=== PATIENT | female | born 1935 | race Caucasian/White ===

== ENCOUNTER 2017-11-09 14:50 | Emergency (ER) | payer OTHER ==
[~2017-11-09] VITALS: Ht 170.2 cm; Wt 54.4 kg
[~2017-11-09 14:50] MED LIST: CARB-93 PO; CLON0.5T4 PO; PARO10TA86 PO; SIMV40TA5 PO
[2017-11-09] MEDS ORDERED: PARO25TA16 PO (15:07)
[2017-11-09 15:52] LABS: BASOPHILS % (AUTO) 0.4 % (0.0-2.0); EOSINOPHILS % (AUTO) 0.1 % (0.0-7.0); HEMATOCRIT 44.6 % (31.2-41.9); HEMOGLOBIN 15.1 g/dL (10.9-14.3); LYMPHOCYTES # (AUTO) 1.2 K/uL (20.0-40.0); LYMPHOCYTES % (AUTO) 15.3 % (20.5-51.5); MEAN CORPUSCULAR HEMOGLOBIN 32.2 uug (24.7-32.8); MEAN CORPUSCULAR HGB CONC 34 g/dL (32.3-35.6); MEAN CORPUSCULAR VOLUME 95.2 fL (75.5-95.3); MONOCYTES # (AUTO) 0.3 K/uL (2.0-10.0); MONOCYTES % (AUTO) 4.2 % (0.0-11.0); NEUTROPHILS # (AUTO) 6.2 K/uL (1.8-8.9); PLATELET COUNT (AUTO) 132 K/uL (179-408); RED BLOOD CELL COUNT(AUTO) 4.68 MIL/uL (3.63-4.92); WHITE BLOOD COUNT (AUTO) 7.8 K/uL (3.8-11.8)
[2017-11-09 15:57] LABS: CARBON DIOXIDE 31 mmol/L (21-32); CHLORIDE 102 mmol/L (98-107); CREATININE 0.7 mg/dL (0.6-1.3); GLUCOSE 91 mg/dL (74-106); POTASSIUM 3.8 mmol/L (3.5-5.1); UREA NITROGEN, BLOOD 22 mg/dL (7-18)
[2017-11-09 16:00] LABS: ETHANOL < 3 MG/DL (0-0)
[2017-11-09 16:08] LABS: ALANINE AMINOTRANSFERASE 27 U/L (14-59); ALKALINE PHOSPHATASE 63 U/L (50-136); ASPARTATE AMINOTRANSFERASE 18 U/L (15-37); BILIRUBIN,DIRECT 0.3 mg/dL (0.0-0.2); BILIRUBIN,TOTAL 1.5 mg/dL (0.2-1.0); TOTAL PROTEIN, SERUM 7.6 g/dL (6.4-8.2)
[2017-11-09 16:09] LABS: ACETAMINOPHEN < 2.0 ug/mL (10-30)
[2017-11-09 16:17] LABS: THYROID STIMULATING HORMONE 1.551 mIU/mL (0.358-3.740)
[2017-11-09 16:47] LABS: *BILIRUBIN,URIN NEGATIVE (NEGATIVE); *BLOOD, URINE Trace-intact (NEGATIVE); *CLARITY,URINE CLEAR (CLEAR); *COLOR,URINE YELLOW (YELLOW); *KETONES,URINE 1+ (NEGATIVE); *PROTEIN,URINE NEGATIVE (NEGATIVE); LEUKOCYTE ESTERASE ,URINE NEGATIVE (NEGATIVE); NITRITE, URINE NEGATIVE (NEGATIVE); UGLUCOSE NEGATIVE (NEGATIVE)
[2017-11-09 17:05] LABS: SQUAMOUS EPITHELIAL CELL,UR FEW /HPF (NONE SEEN); WBC,URINE 0-3 /HPF (0-3)
--- NOTE | 2017-11-09 17:19 | NUR ---
JUDY SPOKE TO DR LEWIS REGARDING PT.
--- NOTE | 2017-11-09 17:19 | NUR ---
MSE COMPLETED. PT SLEEP.
--- NOTE | 2017-11-09 17:30 | NUR ---
SPOKE TO KHANH FROM [facility] WHOM STATED SHE WAS GIVEN AUTJHORIZARTION FOR A PET [place]. ED AUTHORIZATION#[id number].
--- NOTE | 2017-11-09 17:33 | NUR ---
SPOKE TO SIMI MASTERS THE [employer] WHOM STATED HE WOULD BE ARRINVING IN APPROX 15 MIN TO EVAL THE PT.
--- NOTE | 2017-11-09 18:12 | NUR ---
[employer] OPERATOR AT BEDSIDE
[2017-11-09] MEDS ORDERED: CARBIDOPA/LEVODOPA 25-100MG TABLET PO STA (18:47)
[2017-11-09] MEDS ORDERED: PAROXETINE HCL 10 MG TABLET PO SCH (19:00)
--- NOTE | 2017-11-09 19:01 | NUR ---
PRESENT, MEDS ADMINISTERED.
--- NOTE | 2017-11-09 19:08 | NUR ---
MEDS ADMINISTRERED, SBAR REPORT TO ISAÍAS SCOTT.
[2017-11-09] MEDS ORDERED: CARBIDOPA/LEVODOPA 25-100MG TABLET ONE (19:11)
== END 2017-11-09 19:53 | disposition home or self-care (01) ==
LOC: ER 14:50
DX: F44.9 Dissociative and conversion disorder, unspecified (principal); G20 Parkinson's disease; F41.9 Anxiety disorder, unspecified; K59.00 Constipation, unspecified; E78.5 Hyperlipidemia, unspecified; G25.81 Restless legs syndrome
CPT/HCPCS: 36415; 70030-TC; 70450; 71045; 83605; 84443; 85025; 85730; 87040; 93005; A4663; G0480; G0480-TC

== ENCOUNTER 2022-03-31 13:02 | Inpatient (IN) | payer OTHER ==
[~2022-03-31] VITALS: Ht 170.2 cm; Wt 59.0 kg
[~2022-03-31 13:02] MED LIST changes: +CARB-300 PO; -CARB-93 PO; -PARO10TA86 PO; +PARO25TA16 PO; +SIMV-49 PO; -SIMV40TA5 PO
--- NOTE | 2022-03-31 13:25 | NUR ---
BIB [facility]. PATIENT IS AWAKE AND ALERT. SHE HAS A LOT OF MUCOUS IN THE BACK OF HER THROAT. I SUCTIONED A MODERATE AMOUNT OF THICK, PALE YELLOW MUCOUS OUT. COVID SWAB SENT TO LAB
[2022-03-31 13:39] LABS: HEMATOCRIT 37.5 % (31.2-41.9); MEAN CORPUSCULAR HEMOGLOBIN 31.3 uug (24.7-32.8); MEAN CORPUSCULAR VOLUME 94.3 fL (75.5-95.3); PLATELET COUNT (AUTO) 250 K/uL (179-408)
[2022-03-31 13:50] LABS: CARBON DIOXIDE 31 mmol/L (21-32); CHLORIDE 102 mmol/L (98-107); CREATININE 0.7 mg/dL (0.6-1.3); GLUCOSE 116 mg/dL (74-106); POTASSIUM 4.1 mmol/L (3.5-5.1); UREA NITROGEN, BLOOD 22 mg/dL (7-18)
[2022-03-31 14:03] LABS: ALANINE AMINOTRANSFERASE 14 U/L (14-59); ALKALINE PHOSPHATASE 66 U/L (50-136); ASPARTATE AMINOTRANSFERASE 12 U/L (15-37); BILIRUBIN,TOTAL 0.8 mg/dL (0.2-1.0); TOTAL PROTEIN, SERUM 7.2 g/dL (6.4-8.2)
[2022-03-31] MEDS ORDERED: CEFTRIAXONE 1 G in IV DEXTROSE 5% 50 ML IV ONE (15:00)
[2022-03-31] MEDS ORDERED: AZITHROMYCIN IV 500 MG in IV DEXTROSE 5% 250 ML IV ONE (15:00)
[2022-03-31] MEDS ORDERED: CEFTRIAXONE /D5W 50ML IVPB **ER PYXIS IV ONE (15:04)
[2022-03-31] MEDS ORDERED: AZITHROMYCIN 500MG/ D5W 250ML IVPB **ER PYXIS ONLY IV ONE (15:31)
--- NOTE | 2022-03-31 18:09 | NUR ---
AWAITING FOR [facility] TO CALL BACK FOR REPORT/DESTINATION. I SUCTIONED PATIENT GENTLY IN THE MOUTH/BACK OF THROAT TO REMOVE THICK MUCOUS
--- NOTE | 2022-03-31 19:02 | NUR ---
HAND OFF REPORT GIVEN TO GINGER PASCAL
[2022-03-31] MEDS ORDERED: SCOPOLAMINE PATCH 1 MG/72 HRS PATCH TD ONE ×2 (19:45→19:56)
--- NOTE | 2022-03-31 20:37 | NUR ---
Called [facility] for panel call.
--- NOTE | 2022-03-31 21:24 | NUR ---
2nd call made to [facility] for panel call
--- NOTE | 2022-03-31 22:46 | NUR ---
Called [facility] for panel call
[2022-03-31] MEDS ORDERED: GLYCOPYRROLATE 0.2 MG/ML VIAL ONE (22:57)
--- NOTE | 2022-03-31 23:43 | NUR ---
2nd Call made to [email or web address] for panel call
[2022-04-01] MEDS ORDERED: ACETAMINOPHEN 325 MG TABLET PO PRN (00:45)
[2022-04-01] MEDS ORDERED: ONDANSETRON 4 MG/2 ML VIAL IV PRN (00:45)
[2022-04-01] MEDS ORDERED: MORPHINE SULFATE 2 MG/1 ML DISP.SYRIN IV PRN (00:45)
[2022-04-01] MEDS ORDERED: REMEDY ESSENTIAL ZINC PASTE 113 GM TP PRN (00:45)
--- NOTE | 2022-04-01 01:41 | NUR ---
report given to Dimitris PASCAL.
--- NOTE | 2022-04-01 03:03 | NUR ---
pt taken to room 301B via [facility] with all belongings.
[2022-04-01 04:00] VITALS: BP 143/47
[2022-04-01] MEDS: IV LACTATED RINGERS SOLUTION 1,000 ML IV PRN ×2 (04:00→20:34)
[2022-04-01] MEDS: CARBIDOPA/LEVODOPA 25-100MG TABLET PO SCH ×5 (05:50→20:23)
--- NOTE | 2022-04-01 05:50 | NUR ---
PO meds not given at this time because of decreased alertness hence risk for aspiration.
[2022-04-01] MEDS ORDERED: CLONAZEPAM 0.5 MG TABLET PO SCH (09:00)
[2022-04-01] MEDS ORDERED: PAROXETINE HCL 20 MG TABLET PO SCH (09:00)
--- NOTE | 2022-04-01 09:54 | NUR ---
Spoke with patients who request Klonopin and Paxil not be given and changed to PRN instead. made aware.
[2022-04-01 11:59] VITALS: BP 125/44
--- NOTE | 2022-04-01 12:51 | NUR ---
WOUND CARE CONSULT: PT PRESENTS WITH SACRAL DEEP TISSUE INJURY WHICH IS INTACT AND VERY LONG CURLING TOENAILS WITH LOOSE GREAT TOENAIL ON LEFT FOOT, ALL PRESENT ON ADMISSION. DPM CONSULT REQUESTED. RECOMMENDATIONS MADE FOR SKIN PROTECTION. DISCUSSED WITH NURSING STAFF. MD IN AGREEMENT WITH PLAN OF CARE. FIRST STEP LOW AIRLOSS MATTRESS IS ON ORDER. Addendum: 04/01/22 at 1253 by BETSY BENITO RN Amended: Links added.
[2022-04-01] MEDS ORDERED: CEFTRIAXONE 1 G in IV DEXTROSE 5% 50 ML IV SCH ×2 (15:00→21:00)
[2022-04-01] MEDS ORDERED: AZITHROMYCIN IV 500 MG in IV DEXTROSE 5% 250 ML IV SCH (16:00)
[2022-04-01 16:36] VITALS: BP 113/33
--- NOTE | 2022-04-01 18:13 | NUR ---
Patient is awake and able to answer questions. AAO x2-3, son and at bedside. Spoke to and he is declining hospice services, states he only considered it when was not doing well but now that she is awake he does not want hospice. Patient seen by ST, aspiration precautions followed, she is high risk for aspiration. Seen by features editor, features editor able to trim toe nails and removed loose right big toe nail. Patient is comfortable this shift, no distress. All needs attended, call light within reach.
[2022-04-01 20:36] VITALS: BP 104/46
[2022-04-01] MEDS ORDERED: AZITHROMYCIN IV 500 MG in IV DEXTROSE 5% 250 ML IV ONE (21:00)
[2022-04-02 04:42] VITALS: BP 139/61
[2022-04-02] MEDS: IV LACTATED RINGERS SOLUTION 1,000 ML IV PRN (05:41)
--- NOTE | 2022-04-02 05:55 | NUR ---
Patient slept well.AAO x2 able to make needs known.Denies pain. No s/s of distress.Iv patent and intact on left ac and right Fa with LR running at 100cc/hr. Tolerated well.Kept HOB elevated. Aspiration precaution observed at all times. Dressing intact clean and dry on right big toe.Compliant with medication crushed with apple sauce.Patient refused lab draw at this moment. Risk and benefit explained. Patient continue to refused .Incontinent.Pericare rendered.Changed and repositioned .Needs anticipated and met accordingly.Call light with in reach..
[2022-04-02] MEDS: CARBIDOPA/LEVODOPA 25-100MG TABLET PO SCH ×2 (08:39→13:40)
[2022-04-02 10:00] VITALS: BP 91/41
--- NOTE | 2022-04-02 11:00 | NUR ---
Received Pt AAO x2 able to make needs known.Denies pain. No s/s of distress.IV site patent and intact on left ac and RFA with LR running at 100cc/hr. Tolerated well.Kept HOB elevated. Aspiration precaution observed at all times. Dressing clean and dry on right big toe.Compliant with medication crushed with apple sauce.Patient refused lab draw at this moment. Risk and benefit explained x 3 . Patient continue to refused .Incontinent.[facility] rendered.Changed and repositioned .Safety measure in place Call light with in reach.
--- NOTE | 2022-04-02 14:00 | NUR ---
Discharge Pt home . discharge instructions and personal belongings given to her . IV site and ID band was removed . Pt was assisted to a W/C and wheel chalo by one of the staff . Pt left accompany by her and son by a private car.
== END 2022-04-02 14:00 | disposition home health service (06) | DRG 177 ==
LOC: ER 13:02 → MEDSURG3 04-01 02:08
PROVIDERS: ADMIT Nurse Practitioner Acute Care; ATTEND Nurse Practitioner Acute Care
PROC: 0HBRXZZ Excision of Toe Nail, External Approach (ICD-10-PCS; principal; 2022-04-01)
DX: J69.0 Pneumonitis due to inhalation of food and vomit (principal); N17.0 Acute kidney failure with tubular necrosis; R53.2 Functional quadriplegia; I21.4 Non-ST elevation (NSTEMI) myocardial infarction; J15.6 Pneumonia due to other Gram-negative bacteria; G20 Parkinson's disease; F02.80 Dementia in other diseases classified elsewhere, unspecified severity, without behavioral disturbance, psychotic disturbance, mood disturbance, and anxiety; E11.9 Type 2 diabetes mellitus without complications; E78.5 Hyperlipidemia, unspecified; F41.9 Anxiety disorder, unspecified; R62.7 Adult failure to thrive; L60.1 Onycholysis; D72.829 Elevated white blood cell count, unspecified; L60.3 Nail dystrophy; G30.9 Alzheimer's disease, unspecified; Z68.20 Body mass index [BMI] 20.0-20.9, adult; Z51.5 Encounter for palliative care; M79.672 Pain in left foot; M79.671 Pain in right foot
CPT/HCPCS: 36415; 71045; 83605; 84484; 85025; 93005; A4663; A6209; G0378; J0456; J0696; J3490; J7050; J7120